=== PATIENT | male | born 1950 | race Caucasian/White ===

== ENCOUNTER 2020-09-01 09:19 | Outpatient (RCR) | payer MEDICARE, SELFPAY | END 2020-11-15 14:49 | disposition home or self-care (01) | LOC: ANHDMC 09:19 | PROVIDERS: PCP Family Medicine; Visit Provider Internal Medicine Endocrinology, Diabetes & Metabolism | DX: E10.65 Type 1 diabetes mellitus with hyperglycemia (principal); Z71.89 Other specified counseling | CPT/HCPCS: G0108 ==

== ENCOUNTER 2023-12-13 10:32 | Outpatient (RCR) | payer MEDICARE, SELFPAY | END 2023-12-17 16:49 | disposition home or self-care (01) | LOC: ANHDMC 10:32 | PROVIDERS: PCP Family Medicine; Visit Provider Internal Medicine Endocrinology, Diabetes & Metabolism | DX: E10.65 Type 1 diabetes mellitus with hyperglycemia (principal); Z71.89 Other specified counseling | CPT/HCPCS: G0108 ==